=== PATIENT | male | born 2000 | race Caucasian/White ===

== ENCOUNTER 2021-03-13 18:48 | Emergency (ER) | payer OTHER ==
[~2021-03-13] VITALS: Ht 165.1 cm; Wt 163.3 kg
--- NOTE | 2021-03-13 19:53 | ED Integumentary General ---
General Chief Complaint: Skin/Wound Problems Stated Complaint: BILAT ARM/HAND REDNESS AND ITCHING Nursing Triage Note: Pt ambulatory into ER with complaint of Arm/Hands Redness x3 days. Patient denies pain with redness. Pt states that there is some itching with it but its minimal. Source: patient Exam Limitations: no limitations History of Present Illness Date Seen by Provider: Mar 13, 2021 Time Seen by Provider: 19:29 Initial Comments Patient presents to the ER by private conveyance with a significant complaint Sunday night while he was at work at [employer] he noticed his fingertips started getting cold tingly and discolored purplish appearing. He says it is very cold and there and has complained about it in the past. Has never had this problem before. He took some Benadryl and he put some Benadryl ointment on his hands the next day but that did not help. He is not having any itching blistering rash. He does have cats but they do not go outside. Has not been exposed any kind of toxins. He goes to urgent care for most of his needs. He does not follow with a primary care provider nor does he know if he has any problems with his blood pressure. Allergies and Home Medications Patient Home Medication List Home Medication List Reviewed: Yes Review of Systems Review of Systems Constitutional: No chills, No fever, No malaise EENTM: No no symptoms reported, No ear discharge Respiratory: No cough, No short of breath Cardiovascular: No chest pain, No edema Gastrointestinal: No abdominal pain, No nausea, No vomiting Genitourinary: No discharge, No dysuria Musculoskeletal: No back pain, No joint pain All Other Systems Reviewed Negative Unless Noted: Yes Past Ogatvga-[id number]-Wrpktb Hx Patient Social History Tobacco Use?: No Use of E-Cig and/or Vaping dev: No Substance use?: No Alcohol Use?: No Pt feels they are or have been: No Immunizations Up To Date Influenza Vaccine Up-to-Date: No; Not Current Physical Exam Vital Signs Vital Signs - First Documented 03/13/21 19:16 Temp 37.2 Pulse 97 Resp 18 B/P (MAP) 177/85 (115) Pulse Ox 97 O2 Delivery Room Air Capillary Refill : Less Than 3 Seconds General Appearance: WD/WN, no apparent distress HEENT: PERRL/EOMI, pharynx normal Neck: full range of motion, normal inspection Cardiovascular: normal peripheral pulses, regular rate, rhythm Respiratory: no respiratory distress, no accessory muscle use Skin: other (Cool, pallorous, prolonged capillary refill of 5 to 6 seconds in his fingers bilaterally. No rash abrasions or excoriations noted.) Skin Problem Location: upper extremities (Fingers bilaterally) Progress/Results/Core Measures Results/Orders Vital Signs/I&O 03/13/21 19:16 Temp 37.2 Pulse 97 Resp 18 B/P (MAP) 177/85 (115) Pulse Ox 97 O2 Delivery Room Air Blood Pressure Mean: 115 Progress Progress Note : Time: 19:48 Progress Note The patient appears to be experiencing cold triggered Raynaud's phenomenon. He does have an elevated blood pressure measurement today 175/100. We recommend that he follow-up with his primary care doctor to discover whether this is truly elevated blood pressure versus whitecoat syndrome. It may be that calcium channel blockers could treat both of his symptoms. We recommend he wear mittens, keep his hands warm with a personal heater and keep hot hands available. Gave some conservative teaching management about Raynaud's phenomena and return precautions. Departure Impression Primary Impression: Raynaud's phenomenon (by history or observed) Qualified Codes: I73.00 - Raynaud's syndrome without gangrene Additional Impression: HTN (hypertension) with goal to be determined Disposition: 01 HOME, SELF-CARE Condition: Stable Departure-Patient Inst. Decision time for Depature: 19:50 Referrals: NO,LOCAL PHYSICIAN (PCP/Family) Primary Care Physician Patient Instructions: High Blood Pressure (DC), Raynaud Disease Add. Discharge Instructions: Raynaud's phenomena is characterized by an overreaction of your arteries in your fingers and toes to cold stimuli. This causes them to constrict and reduce the amount of blood flow to your fingers and toes when you are cold. The best treatment is prevention. Wear mittens, keep your hands warm with a personal warmer or chemical or battery assembler warmer such as hot hands or a Zippo hand warmer. If you have this sensation then you can slowly warm your hands up with a warm bath but be careful about using hot water and do not rub your hands back and forth to try and warm them up as this can cause more damage to the tissue. Your blood pressure is elevated today and you need to follow-up with your primary care team to discover whether this is truly indicative of high blood pressure. If it is it is important that you treat it so you do not end up with long-term disability such as heart attacks, strokes, impotence. There are blood pressure medicines that can be used for blood pressure as well as reducing the chances of Raynaud's phenomena occurring that you can discuss with your primary care doctor if they are indicated. All discharge instructions reviewed with patient and/or family. Voiced understanding. Work/School Note: Work Release Form Date Seen in the Emergency Department: Mar 13, 2021 Return to Work: Mar 14, 2021 Restrictions: Need Release from Doctor Other Restrictions Listed Below: Okay to return to work but must keep hands warm with personal heaters. Restrictions: May wear mittens and use hand warmers as needed. BALDEV ALBERT Mar 13, 2021 19:53
[2021-03-13 20:16] VITALS: BP 163/80
== END 2021-03-13 20:15 | disposition home or self-care (01) ==
LOC: EDUNIT# 18:48 → ER 18:51
DX: I73.00 Raynaud's syndrome without gangrene (principal); I10 Essential (primary) hypertension
CPT/HCPCS: 99281

== ENCOUNTER → 2022-06-23 | Outpatient (CLI) | payer BC, OTHER ==
--- NOTE | 2022-06-23 13:09 | Diagnostic Imaging Report ---
INDICATION: CHEST PAIN COMPARISON: None FINDINGS: Frontal and lateral views of the chest demonstrate normal heart size and pulmonary vascularity. The lungs are clear. There are no signs of infiltrate, pleural effusions or pneumothoraces. The visualized osseous structures show no acute abnormalities. IMPRESSION: 1. No acute process. No signs of infiltrates, effusions or pneumothoraces. Dictated by: Dictated on workstation # [id number]
== END ==
LOC: RAD 11:44
PROVIDERS: ATTEND Registered Nurse Critical Care Medicine
DX: R07.89 Other chest pain (principal); S23.8XXA Sprain of other specified parts of thorax, initial encounter; H65.02 Acute serous otitis media, left ear; H90.12 Conductive hearing loss, unilateral, left ear, with unrestricted hearing on the contralateral side; Z20.828 Contact with and (suspected) exposure to other viral communicable diseases; J30.89 Other allergic rhinitis
CPT/HCPCS: 71046